=== PATIENT | female | born 1990 | race Caucasian/White ===

== ENCOUNTER 2017-08-11 19:53 | Emergency (ER) | payer OTHER ==
[~2017-08-11] VITALS: Ht 152.4 cm; Wt 72.6 kg
[~2017-08-11 19:53] MED LIST: ACET325 PO; ALBU90OI INH; Augmentin 875-1 EACH PO; CEPH500 PO; CIPR500 PO; CODACE30 PO; CRUTCH4 USE; CYCL10 PO; Cyclobenzaprine5 MG PO; DIVA250EC PO; DOXY100 PO; Evening Primro1 EACH PO; HYDACE5 PO; IBUP200 PO; IBUP600 PO; IBUP800 PO; IRON 100 PLUS1 EACH PO; KETO10 PO; MEDR150I; METO10 PO; MUPI2TC TOP; NAPR250 PO; NAPR500 PO; ONDA4 PO; OXYACE5T PO; PENVK500 PO; Percocet 5-3251 EACH PO; Prednisone20 MG PO; RXCODGUASY PO; RXHYDACE PO; RXONDA4ODT MM; RXOXYACE PO; TRAM50 PO; Veetids 500500 MG PO; Verotin-Gr Cap1 EACH PO
[2017-08-11] MEDS ORDERED: DIPH50 PO (20:01)
[2017-08-11] MEDS ORDERED: Permethrin60 GM TOP (21:17)
== END 2017-08-11 21:20 | disposition home or self-care (01) ==
LOC: ER 19:53
DX: L25.9 Unspecified contact dermatitis, unspecified cause (principal); Z88.5 Allergy status to narcotic agent; F17.200 Nicotine dependence, unspecified, uncomplicated
CPT/HCPCS: 99282